=== PATIENT | female | born 1970 | race Caucasian/White ===

== ENCOUNTER 2020-04-15 01:31 | Emergency (ER) | payer SELFPAY ==
[~2020-04-15] VITALS: Ht 154.9 cm; Wt 49.9 kg
[2020-04-15 01:33] VITALS: BP 138/84
--- NOTE | 2020-04-15 01:49 | NUR ---
TAKEN TO CT.
== END 2020-04-15 02:42 | disposition home or self-care (01) ==
LOC: ER 01:34
DX: S00.83XA Contusion of other part of head, initial encounter (principal); F10.129 Alcohol abuse with intoxication, unspecified; I10 Essential (primary) hypertension; Z88.1 Allergy status to other antibiotic agents; V49.49XA Driver injured in collision with other motor vehicles in traffic accident, initial encounter; Y93.89 Activity, other specified; Y92.413 State road as the place of occurrence of the external cause; Y99.8 Other external cause status; Y90.9 Presence of alcohol in blood, level not specified
CPT/HCPCS: 70450-TC; 70486-TC; 72125-TC